=== PATIENT | female | born 2000 | race Caucasian/White ===

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

== ENCOUNTER 2023-12-29 22:06 | Emergency (ER) | payer OTHER ==
[~2023-12-29] VITALS: Ht 167.6 cm; Wt 63.5 kg
[~2023-12-29 22:06] MED LIST changes: +Flonase 0.05% N16 GM
[2023-12-29] MEDS ORDERED: Ondansetron 4 MG SoluTab MM ONE (22:30)
[2023-12-29] MEDS ORDERED: Acetaminophen 500 MG Tab PO ONE (22:35)
[2023-12-29] MEDS ORDERED: Ketorolac Tromethamine 10 MG Tab PO ONE (22:35)
[2023-12-29] MEDS ORDERED: Amoxicillin/Clavulanate K 875 MG Tab PO ONE (22:50)
[2023-12-29] MEDS ORDERED: LORazepam 1 MG Tab PO ONE (23:50)
[2023-12-30] MEDS ORDERED: Diphth,Pertuss(Acell),Tet Vac 0.5 ML VIAL IM ONE (00:55)
[2023-12-30] MEDS ORDERED: AMOCLA875 PO (00:57)
[2023-12-30] MEDS ORDERED: Tetanus and Diphtheria Toxoid 0.5 ML INJ IM ONE (01:00)
[2023-12-30 01:25] VITALS: BP 121/72
== END 2023-12-30 01:27 | disposition home or self-care (01) ==
LOC: ER 22:06
DX: S51.852A Open bite of left forearm, initial encounter (principal); F90.9 Attention-deficit hyperactivity disorder, unspecified type; Z79.51 Long term (current) use of inhaled steroids; W54.0XXA Bitten by dog, initial encounter
CPT/HCPCS: 12001; 73090; 90471; 90714; 90715; 99283-25; A9270

== ENCOUNTER 2025-11-09 12:13 | Emergency (ER) | payer OTHER ==
[~2025-11-09] VITALS: Ht 167.6 cm; Wt 80.7 kg
[~2025-11-09 12:13] MED LIST changes: +AMOCLA875 PO
[2025-11-09 12:28] LABS: Source, Urine Clean Catch
[2025-11-09 12:36] LABS: Bilirubin, Urine Neg (Neg); Color, Urine Yellow (P-Yellow); Glucose Qualitative, Urine Neg (Neg); Ketones, Urine 1+ (Neg); Leukocyte Esterase, Urine 2+ (Neg); Protein, Urine 1+ (Neg); Specific Gravity, Urine 1.020 (1.003-1.022); Urobilinogen, Urine NORM (Normal)
[2025-11-09 13:03] LABS: BASOPHILS ABSOLUTE AUTO 0.06 K/mm3 (0.00-0.23); BASOPHILS PERCENT AUTO 1 % (0-2); EOSINOPHILS ABSOLUTE AUTO 0.05 K/mm3 (0.00-0.68); EOSINOPHILS PERCENT AUTO 0 % (0-6); Hematocrit 43.4 % (33.0-51.0); Hemoglobin 14.7 g/dL (11.5-16.0); IMMATURE GRAN ABSOLUTE AUTO 0.12 K/mm3 (0.00-0.10); IMMATURE GRAN PERCENT AUTO 1 % (0-1); LYMPHOCYTES ABSOLUTE AUTO 2.96 K/mm3 (0.84-5.20); LYMPHOCYTES PERCENT AUTO 24 % (21-46); MONOCYTES ABSOLUTE AUTO 0.63 K/mm3 (0.16-1.47); MONOCYTES PERCENT AUTO 5 % (4-13); Mean Corpuscular HGB Conc 33.9 g/dL (31.5-36.5); Mean Corpuscular Volume 86 fL (80-100); NEUTROPHILS ABSOLUTE AUTO 8.44 K/mm3 (1.96-9.15); NEUTROPHILS PERCENT AUTO 69 % (41-73); NRBC ABSOLUTE 0.00 K/mm3 (0.00-0.02); NRBC Auto 0.0 /100 WBC (0.0-0.2); Platelet Count 265 K/mm3 (150-400); RDW Coefficient Variation 12.9 % (11.7-14.2); RDW Standard Deviation 40.2 fL (35.1-46.3)
[2025-11-09 13:07] LABS: Red Blood Cells, Urine 0-2 /hpf (0-2)
[2025-11-09 13:49] LABS: Alanine Aminotransfer (ALT/SGP 25.0 U/L (12-78); Albumin, Blood 4.1 g/dL (3.4-5.0); Albumin/Globulin Ratio 1.2 (0.8-1.8); Anion Gap 13.0 mmol/L (3-11); Aspartate Aminotrans (AST/SGOT 16.0 U/L (12-37); Bilirubin, Total 0.4 mg/dL (0.1-1.0); Blood Urea Nitrogen 6.0 mg/dL (8-24); CO2, Blood 19.0 mmol/L (21-32); Calcium, Blood 9.1 mg/dL (8.5-10.1); Chloride, Blood 109.0 mmol/L (98-108); Creatinine, Blood 0.66 mg/dL (0.40-1.00); Globulin, Blood 3.3 g/dL (2.2-4.0); Glucose, Blood 98.0 mg/dL (70-99); Potassium, Blood 4.0 mmol/L (3.5-5.5); Sodium, Blood 137.0 mmol/L (136-145); Total Protein, Blood 7.4 g/dL (6.4-8.2)
[2025-11-09 14:10] VITALS: BP 124/89
== END 2025-11-09 14:09 | disposition home or self-care (01) ==
LOC: ER 12:13
PROVIDERS: Physician Assistant
DX: O20.9 Hemorrhage in early pregnancy, unspecified (principal); Z3A.01 Less than 8 weeks gestation of pregnancy; Z79.51 Long term (current) use of inhaled steroids
CPT/HCPCS: 76801; 76817; 80053; 81001; 84702; 85025; 86900; 86901; 87086; 99284-25